=== PATIENT | male | born 1975 | race Hispanic/Latino ===

== ENCOUNTER 2017-12-12 12:49 | Emergency (ER) | payer BC ==
[~2017-12-12] VITALS: Ht 182.9 cm; Wt 113.4 kg
[2017-12-12] MEDS ORDERED: IBUPROFEN 600 MG TAB PO STA (13:38)
[2017-12-12] MEDS ORDERED: ZOLOFT50 MG PO (13:48)
[2017-12-12] MEDS ORDERED: ASPIR 8181 MG PO (13:48)
[2017-12-12] MEDS ORDERED: SYNTHROID100 MCG PO (13:48)
[2017-12-12] MEDS ORDERED: ATENOLOL50 MG (14:00)
[2017-12-12] MEDS ORDERED: FENOFIBRATE145 MG (14:00)
== END 2017-12-12 14:27 | disposition home or self-care (01) ==
LOC: FSED 12:49
DX: M79.661 Pain in right lower leg (principal); I10 Essential (primary) hypertension; Y93.67 Activity, basketball; Y92.310 Basketball court as the place of occurrence of the external cause
CPT/HCPCS: 99284